=== PATIENT | male | born 2000 | race Asian ===

== ENCOUNTER 2024-01-24 22:10 | Emergency (ER) | payer SELFPAY ==
[~2024-01-24] VITALS: Ht 177.8 cm; Wt 60.9 kg
[2024-01-24 22:10] VITALS: BP 109/66; TEMP 97.4; O2SAT 98
== END 2024-01-24 23:44 | disposition left against medical advice (07) ==
LOC: M ED 22:10
DX: Z53.21 Procedure and treatment not carried out due to patient leaving prior to being seen by health care provider (principal)

== ENCOUNTER 2025-04-22 10:09 | Emergency (ER) | payer OTHER, SELFPAY ==
[~2025-04-22] VITALS: Ht 177.8 cm; Wt 66.6 kg
[2025-04-22] MEDS: LIDOCAINE W/EPINEPHrine 1% 20 ML VIAL SC ONE (11:45)
[2025-04-22 12:41] VITALS: BP 105/53; TEMP 96.4; O2SAT 100
== END 2025-04-22 12:53 | disposition home or self-care (01) ==
LOC: M ED 11:19
DX: S62.626A Displaced fracture of middle phalanx of right little finger, initial encounter for closed fracture (principal); V28.01XA Electric (assisted) bicycle driver injured in noncollision transport accident in nontraffic accident, initial encounter; Y92.410 Unspecified street and highway as the place of occurrence of the external cause; Y93.89 Activity, other specified; Y99.9 Unspecified external cause status
CPT/HCPCS: 73140; 96372; 99284; J0665